=== PATIENT | male | born 1985 | race Caucasian/White ===

== ENCOUNTER 2017-03-13 15:03 | Inpatient (IN) | payer BC ==
[~2017-03-13] VITALS: Ht 182.9 cm; Wt 86.4 kg
--- NOTE | ~2017-03-13 | OP ---
PATIENT NAME: BRIAN MEADE MEDICAL RECORD: [id number] :81 LOCATION:D.M3 D.1210 ADMISSION DATE:03/13/17 SURGEON: CHRIS NORRIS MD DATE OF OPERATION: 03/14/2017 SURGEON: Chris Norris MD ANESTHESIA: General anesthesia by Davey Bonner CRNA. PREOPERATIVE DIAGNOSIS: Right mid ureteral 6-mm stone. PROCEDURE: Cystoscopy, right retrograde pyelogram, right ureteroscopy and stone extraction, right ureteral stent insertion 6-Cymraes x 26 cm with string attached. FINDINGS: Radiodense right mid ureteral 6-mm stone. SPECIMENS: Right ureteral stone. BLOOD LOSS: None. 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 He has had a prior history of kidney stones. For the past 2 days, he has been complaining of right flank pain. He came to the Emergency Room and on CT scan he was found to have some punctate stones in the right kidney and a 6-mm stone in the right mid ureter causing proximal hydroureteronephrosis. He was admitted for pain control and this morning, he is having right ureteroscopy to remove the stone. 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 He is not allergic to any medication. DESCRIPTION OF PROCEDURE: The patient was given induction of general anesthesia. He was placed into dorsal lithotomy position. He was then prepped and draped. A 21-Cymraes cystoscope was used for visualization. Penile urethra was normal. Prostatic urethra was not obstructive. Going into the bladder, there were single ureteral orifices on each side. No bladder tumors were seen. Under fluoroscopy we could see a faint radiodensity, which could possibly be the stone on the right side. In order to confirm this, we performed a right retrograde pyelogram. Diluted contrast was injected into the right ureteral orifice through a 5-Cymraes open-ended ureteral catheter. This confirmed that the faint radiodensity was indeed the stone and it was causing the high-grade obstruction. Through the lumen of the open-ended ureteral catheter, we placed a Sensor wire up into the renal pelvis. The open-ended ureteral catheter was completely removed, leaving the guidewire in place. Over the wire, we inserted a 21-Cymraes x 4 cm ureteral dilation balloon. This was inflated with 16 atmospheres of pressure for a few seconds. The balloon was then deflated and completely removed. The bladder was emptied through the cystoscope and the cystoscope was removed, leaving the guidewire in place. We then introduced the rigid ureteroscope. We came up to the stone and identified it. The 4-wire basket was placed around the stone and the stone was completely extracted. The stone will be sent to pathology for stone analysis. We then removed the ureteroscope and placed the guidewire back into the cystoscope. Over the wire, we inserted the 6-Cymraes x 26 cm ureteral stent. Once the stent was in correct position, the wire was completely withdrawn. The proximal end of the stent was seen to coil within the renal pelvis. The distal end of the stent was pushed into the bladder using a pusher. The bladder was completely emptied through the OPERATIVE REPORT [id number] BRIAN MEADE and the scope was removed. The string on the distal end of the stent remained attached to it. It hangs out of the urethra. We tied the string to itself in a knot and cut it shorter. The patient was awakened and brought to the recovery room. He will be sent home today with a prescription for [place] and Flomax. I will see him in the office next week to remove the stent by pulling on the string. TRANSINT:[id number] Voice Confirmation ID: [id number] DOCUMENT ID: [id number] CHRIS NORRIS MD at 1250 CC: [id number] DICTATION DATE: 03/14/17 0958 [employer] DEVELOPER: 03/14/17 1257 DIS IN 03/14/17 [place] [id number] [place] [id number]
[2017-03-13 15:30] LABS: BASOPHILS 0.2 % (0-2); EOSINOPHILS 0.9 % (0-7); HEMOGLOBIN 14.4 g/dL (13.5-17.5); IMMATURE GRANULOCYTES 0.2 % (0-5); LYMPHOCYTES 22.5 % (15-50); MCH 30.8 pg (26.0-34.0); MCHC 34.3 g/dL (31.0-37.0); MCV 89.7 fL (80.0-100.0); MEAN PLATELET VOLUME 9.5 fL (7.4-10.4); MONOCYTES 6.2 % (2-11); PLATELET COUNT 240 10x3/uL (130-400); RBC 4.68 10x6/uL (4.20-6.10); RDW 12.2 % (11.5-14.5); WBC 12.3 10x3/uL (4.8-10.8)
[2017-03-13 15:38] LABS: ALBUMIN 4.3 g/dL (3.4-5.0); ANION GAP 16.4 mmol/L (8-16); BILIRUBIN - TOTAL 0.33 mg/dL (0.2-1.3); CARBON DIOXIDE 26.2 mmol/L (21.0-32.0); CREATININE - SERUM 1.3 mg/dL (0.6-1.3); POTASSIUM - SERUM 3.6 mmol/L (3.5-5.1); PROTEIN - SERUM 7.4 g/dL (6.4-8.2)
[2017-03-13 18:54] LABS: APPEARANCE CLEAR (CLEAR); BILIRUBIN NEGATIVE (NEGATIVE); COLOR YELLOW (YELLOW); GLUCOSE NEGATIVE (NEGATIVE); KETONE MODERATE mg/dL (NEGATIVE); NITRITE NEGATIVE (NEGATIVE); PROTEIN TRACE mg/dL (NEGATIVE); SPECIFIC GRAVITY 1.015 (1.005-1.020); UROBILINOGEN NORMAL (NORMAL)
[2017-03-13 18:55] LABS: BACTERIA FEW /hpf (NONE SEEN); RED CELLS - URINE 25-50 /hpf (0-5); WHITE CELLS - URINE 0-5 /hpf (0-5)
[2017-03-13 22:15] VITALS: BMI 25.8
[2017-03-14 00:09] VITALS: BP 136/94
[2017-03-14 02:30] VITALS: BP 135/80
[2017-03-14 05:49] VITALS: BP 129/83
[2017-03-14 08:00] VITALS: BP 121/068
[2017-03-14 09:11] VITALS: Ht 182.9 cm; Wt 86.4 kg
[2017-03-14 12:00] VITALS: BP 134/092
[2017-03-14] MEDS ORDERED: FLOMAX0.4 MG PO (13:23)
[2017-03-14] MEDS ORDERED: HYDROCODON-ACE1 EAC7 PO (13:24)
[2017-03-22 14:21] LABS: CALCULI - CA OXALATE DIHYDRATE 20 % (()); CALCULI - CA OXALATE MONOHYDR 70 % (()); CALCULI - CALCIUM PHOSPHATE 10 % (()); CALCULI - COLOR Brown (()); CALCULI - WEIGHT 58.8 mg (())
== END 2017-03-14 15:04 | disposition home or self-care (01) | DRG 669 ==
LOC: D.ER 15:03 → D.M3 20:25
PROVIDERS: Emergency Medicine; Urology
PROC: 0TC68ZZ Extirpation of Matter from Right Ureter, Via Natural or Artificial Opening Endoscopic (ICD-10-PCS; principal; 2017-03-14 08:30)
PROC: 0T768DZ Dilation of Right Ureter with Intraluminal Device, Via Natural or Artificial Opening Endoscopic (ICD-10-PCS; 2017-03-14 08:30)
PROC: BT1D1ZZ Fluoroscopy of Right Kidney, Ureter and Bladder using Low Osmolar Contrast (ICD-10-PCS; 2017-03-14 08:30)
DX: N13.2 Hydronephrosis with renal and ureteral calculous obstruction (principal); Z87.891 Personal history of nicotine dependence